=== PATIENT | male | born 1995 | race Caucasian/White ===

== ENCOUNTER → 2019-11-06 | Outpatient (CLI) | payer OTHER ==
--- NOTE | 2019-11-06 11:49 | REP ---
Clinical: Abdominal pain. Technique: Single supine view of the abdomen and pelvis. Findings: Mild fecal stasis cannot be excluded and may represent constipation. No bowel obstruction or perforation. No obvious organomegaly. No abnormal calcification or foreign body. Skeletal structures are intact. Impression: Mild fecal stasis and possible constipation. Electronically Signed by Johnson Leija MD 11/06/2019 11:40 A
== END ==
LOC: M LRY 11:22
PROVIDERS: ATTEND Physician Assistant
DX: R10.84 Generalized abdominal pain (principal)
CPT/HCPCS: 74018; G0463